=== PATIENT | male | born 1980 | race Hispanic/Latino ===

== ENCOUNTER 2018-02-27 16:06 | Emergency (ER) | payer MEDICAID, OTHER ==
[2018-02-27 16:33] VITALS: RESP 18; TEMP 98.1
[2018-02-27] MEDS ORDERED: Emtricitabine-Tenofovir 200 mg-300 mg Tab PO STA (18:07)
[2018-02-27] MEDS ORDERED: cefTRIAXone (Rocephin) 250 mg Inj IM STA (18:07)
[2018-02-27] MEDS ORDERED: Emtricitabine-Tenofovir 200 mg-300 mg Tab PO NR (18:15)
[2018-02-27 18:42] LABS: BASO % 0.5 % (0.0-2.0); EOS # 0.1 K/uL (0.0-0.7); EOS % 1.4 % (0.0-4.0); HEMOGLOBIN 15.9 g/dL (12.0-18.0); LYMPH # 1.8 K/uL (1.0-4.3); LYMPH % 23.1 % (20.0-40.0); MEAN CELL VOLUME 84.5 fL (80.0-94.0); MEAN CORPUSCULAR HEMOGLOBIN 30.6 pg (27.0-31.0); MEAN CORPUSCULAR HGB CONC 36.2 g/dL (33.0-37.0); MEAN PLATELET VOLUME 8.2 fL (7.2-11.7); MONO # 0.6 K/uL (0.0-0.8); NEUT # 5.3 K/uL (1.8-7.0); RBC 5.21 Mil/uL (4.40-5.90); RED CELL DISTRIBUTION WIDTH 12.8 % (11.5-14.5)
[2018-02-27 18:55] LABS: ALB/GLOB RATIO 1.4 (1.0-2.1); ALBUMIN 4.9 g/dL (3.5-5.0); ALT/SGPT 17 U/L (21-72); AST/SGOT 23 U/L (17-59); BLOOD UREA NITROGEN 9 mg/dL (9-20); CALCIUM 9.5 mg/dl (8.6-10.4); GFR AFRICAN-AMERICAN > 60; GFR NON-AFRICAN AMERICAN > 60
--- NOTE | 2018-02-27 19:02 | C.PDOC ---
History Of Present Illness 37-year-old male, presents to the emergency department requesting prophylactic treatment for HIV. Patient states he was at a hotel with another man, drank a "liquid drug", and became very sleepy. Notes he does not recall the night clearly but remembers having unprotected anal intercourse. Pt notes he was in the hotel room the entire time and other male told him "you slept the whole time." Pt denies any pain or injury. Denies testicular pain, penile discharge, anal pain, abdominal pain, n/v, or fever. Denies head trauma. Pt notes intercourse was consensual. Time Seen by Provider: 02/27/18 17:57 Chief Complaint (Nursing): Medical Clearance History Per: Patient History/Exam Limitations: no limitations Past Medical History Reviewed: Historical Data, Nursing Documentation, Vital Signs Vital Signs: Last Vital Signs Temp 98.1 F 02/27/18 16:26 Pulse 68 02/27/18 20:26 Resp 18 02/27/18 20:26 BP 104/70 02/27/18 20:26 Pulse Ox 99 02/27/18 20:26 Family History: States: No Known Family Hx - Social History Hx Alcohol Use: Yes Hx Substance Use: No - Immunization History Hx Tetanus Toxoid Vaccination: Yes Hx Influenza Vaccination: Yes Hx Pneumococcal Vaccination: No Review Of Systems Constitutional: Negative for: Fever Gastrointestinal: Negative for: Nausea, Vomiting, Abdominal Pain Physical Exam - Physical Exam Appears: Non-toxic, No Acute Distress Head: Atraumatic, Normacephalic Eye(s): bilateral: Normal Inspection, EOMI Nose: Normal Oral Mucosa: Moist Neck: Normal ROM, Supple Chest: Symmetrical Cardiovascular: Rhythm Regular Respiratory: Normal Breath Sounds, No Accessory Muscle Use Gastrointestinal/Abdominal: Soft, No Tenderness Extremity: Normal ROM, No Deformity, No Swelling Neurological/Psych: Oriented x3, Normal Speech ED Course And Treatment - Laboratory Results Result Diagrams: 02/27/18 18:35 02/27/18 18:35 O2 Sat by Pulse Oximetry: 98 Progress Note: Discussed risks of unprotected intercourse. Discussed risks and benefits of prophylaxis. Pt was informed hepatitis results will not return today. Pt believes he is up to date. Instructed to follow up on results . Discussed full treatment for HIV and instructed to follow up with PMD in 1-2 days. Disposition - Disposition Disposition: HOME/ ROUTINE Disposition Time: 19:53 Condition: STABLE Additional Instructions: Follow up with your primary medical doctor or clinic in 2-5 days for further evaluation. Take medications as prescribed. Return to the emergency department at any time if symptoms persist or worsen. Prescriptions: Dolutegravir Sodium [Tivicay] 50 mg PO DAILY #3 tab Emtricitabine/Tenofovir Diso [Truvada 200 MG-300 MG] 1 tab PO DAILY #3 tab Instructions: Screening for Sexually Transmitted Infections Forms: [facility] [employer] ([place]ic) - Clinical Impression Clinical Impression: Unprotected sexual intercourse, STD exposure - Scribe Statement The provider has reviewed the documentation as recorded by the Scribe (Kaushik Mejía) All medical record entries made by the Scribe were at my direction and personally dictated by me. I have reviewed the chart and agree that the record accurately reflects my personal performance of the history, physical exam, medical decision making, and the department course for this patient. I have also personally directed, reviewed, and agree with the discharge instructions and disposition.
[2018-02-27 19:03] LABS: URINE BACTERIA RARE (<OCC); URINE BILIRUBIN NEGATIVE (NEGATIVE); URINE CLARITY Clear (Clear); URINE COLOR Straw (YELLOW); URINE GLUCOSE (UA) NORMAL (Normal); URINE LEUKOCYTE ESTERASE NEG Leu/uL (Negative); URINE PROTEIN NEGATIVE (NEGATIVE); URINE UROBILINOGEN NORMAL mg/dL (0.2-1.0)
[2018-02-27 19:04] LABS: URINE BLOOD TRACE (NEGATIVE)
[2018-02-27 20:27] VITALS: BP 104/70; PULSE 68
[2018-02-27 21:21] LABS: BARBITURATES, UR NEGATIVE (NEGATIVE); BENZODIAZEPINES, UR NEGATIVE (NEGATIVE); OPIATES, UR NEGATIVE (NEGATIVE); PHENCYCLIDINE, UR NEGATIVE (NEGATIVE)
[2018-02-27 23:08] VITALS: O2SAT 98
[2018-02-28 08:03] LABS: HEPATITIS B SURFACE AG Negative (NEGATIVE)
[2018-02-28 08:09] LABS: HEPATITIS A IGM NEGATIVE (NEGATIVE); HEPATITIS B CORE AB NEGATIVE (NEGATIVE)
[2018-02-28 08:20] LABS: HEPATITIS C ANTIBODY NEGATIVE (NEGATIVE)
== END 2018-02-27 20:25 | disposition home or self-care (01) ==
LOC: C.ER 16:06
DX: Z20.2 Contact with and (suspected) exposure to infections with a predominantly sexual mode of transmission (principal)
CPT/HCPCS: 80053; 80074; 80324; 80345; 80346; 80349; 80353; 80358; 80361; 81001; 83992; 85025; 86592; 86703; 86706; 87491; 87591; 96372; 99282; J0696